=== PATIENT | female | born 2005 | race Two or more races ===

== ENCOUNTER 2024-06-26 17:59 | Emergency (ER) | payer MEDICAID ==
[~2024-06-26] VITALS: Ht 162.6 cm; Wt 118.0 kg
[2024-06-26] MEDS: ACETAMINOPHEN 500 MG TAB PO ONE (18:32)
[2024-06-26] MEDS: SODIUM CHLORIDE 0.9% 1,000 ML IV ONE (18:32)
[2024-06-26 18:42] VITALS: PULSE 131; RESP 16; O2SAT 96
[2024-06-26 18:53] LABS: Basophils # (auto) 0.1 10 ^3/uL (0-0.2); Basophils % (auto) 0.8 % (0.0-2.0); Eosinophils # (auto) 0.1 10 ^3/uL (0-0.8); Eosinophils % (auto) 0.7 % (0.0-7.0); Hematocrit 42.5 % (36.0-46.0); Hemoglobin 14.3 g/dL (12.2-16.2); Lymphocytes # (auto) 0.8 10 ^3/uL (0.4-5.4); Lymphocytes % (auto) 7.4 % (10.0-50.0); Mean Corpuscular Hemoglobin 30.3 pg (28.0-32.0); Mean Corpuscular Hgb Conc. 33.6 g/dL (32.0-36.0); Mean Corpuscular Volume 90.2 fL (80.0-100.0); Monocytes # (auto) 0.5 10 ^3/uL (0-1.3); Monocytes % (auto) 4.7 % (0.0-12.0); Neutrophils # (auto) 9.9 10 ^3/uL (1.6-8.6); Neutrophils % (auto) 86.4 % (37.0-80.0); Nucleated Red Blood Cells % 0.1 %; Platelet Count (auto) 423 10^3/uL (140-450); Red Blood Cells 4.71 10^6/uL (4.0-5.20); Red Cell Distribution Width 13.5 % (11.8-14.3); White Blood Cell 11.5 10^3/uL (4.4-10.8)
[2024-06-26 19:15] VITALS: TEMP 98.3
[2024-06-26 20:29] LABS: Alanine Aminotransferase 25 U/L (7-40); Alkaline Phosphatase 89 U/L (46-116); Anion Gap 7 (5-15); Aspartate Aminotransferase 11 U/L (13-40); BUN/Creatinine Ratio 8.8 (10.0-20.0); Blood Alcohol 3.4 mg/dL (<10); Blood Urea Nitrogen 6 mg/dL (9-23); Calcium 9.4 mg/dL (8.7-10.4); Carbon Dioxide 22 mmol/L (20-31); Chloride 108 mmol/L (98-107); Glucose 89 mg/dL (74-106); Potassium 3.9 mmol/L (3.5-5.1); Sodium 137 mmol/L (136-145)
[2024-06-26 20:30] LABS: Albumin 4.6 g/dL (3.2-4.8); Bilirubin, Total 0.6 mg/dL (0.2-1.0); Total Protein 7.7 g/dL (5.7-8.2)
[2024-06-26 20:38] LABS: Urine Bacteria FEW /hpf (None Seen); Urine Blood Negative /uL (Negative); Urine Clarity Turbid (Clear); Urine Color Colorless (Yellow); Urine Protein, UAD Negative (Negative); Urine Specific Gravity 1.006 (1.001-1.035); Urine Urobilinogen Normal (Negative); Urine WBC 40 /hpf (0 - 5)
[2024-06-26 20:48] LABS: Amphetamine Screen, Urine Neg (NEGATIVE)
[2024-06-26 20:49] LABS: Barbiturate Scree,Urine Neg (NEGATIVE); Benzodiazephine Screen, Urine Neg (NEGATIVE); Cannabinoid Screen, Urine Neg (NEGATIVE); Cocaine Screen, Urine Neg (NEGATIVE); Opiate Scree,Urine Neg (NEGATIVE); Phencyclidine Screen, Urine Neg (NEGATIVE)
[2024-06-26] MEDS ORDERED: ACET500T58 PO (22:29)
[2024-06-26] MEDS ORDERED: NITR-87 PO (22:29)
[2024-06-26 23:00] VITALS: BP 101/41; PULSE 95; RESP 12; O2SAT 98
[2024-06-26] MEDS: NITROFURANTOIN 100 mg CAP PO ONE (23:00)
== END 2024-06-26 23:16 | disposition home or self-care (01) ==
LOC: EDBD 17:59 → EDUNIT# 17:59 → ER 18:04
DX: N39.0 Urinary tract infection, site not specified (principal); R10.2 Pelvic and perineal pain; E66.01 Morbid (severe) obesity due to excess calories; Z68.41 Body mass index [BMI] 40.0-44.9, adult; Z79.899 Other long term (current) drug therapy
CPT/HCPCS: 36415; 71045; 80053; 80307; 80320; 81001; 83880; 84484; 84702; 85025; 85379; 93005; 96360; 96361; 99285; J7030